=== PATIENT | female | born 1965 | race African-American/Black ===

== ENCOUNTER 2017-10-24 14:16 | Emergency (ER) | payer MEDICARE, MEDICAID | END 2017-10-24 16:32 | disposition left against medical advice (07) | LOC: ERS 14:16 | DX: Z53.21 Procedure and treatment not carried out due to patient leaving prior to being seen by health care provider (principal) ==

== ENCOUNTER 2018-02-26 17:20 | Emergency (ER) | payer MEDICARE, MEDICAID ==
[2018-02-26 18:02] LABS: Pregnancy Test - Urine (BHCG) Negative (Negative); Pregu Control Background? CLEAR/WHITE (CLR/WHITE); Pregu Control Bar Appear? YES (CONTROL BAR); Specific Gravity 1.021 (1.002-1.036)
[2018-02-26 19:01] LABS: Bilirubin Negative (Negative); Blood, Urine Negative (Negative); Clarity CLEAR (Clear); Glucose, Urine (Dipstick) Negative (Negative); Leukocyte Moderate (Negative); Nitrite Negative (Negative); Protein, Urine (Dipstick) Negative (Neg-Trace); Specific Gravity, Urine 1.023 (1.002-1.036); Urobilinogen 0.2 mg/dL (0.2-1.0); pH, Urine 5.5 (5.0-9.0)
[2018-02-26 19:04] LABS: Bacteria/HPF None Seen HPF (None Seen); Hyaline Casts/LPF 0-3 HYALINE CAST LPF (0-3 Hyaline); Pathc Cast-AUWi Flag 0.43 (0-2.49); Squamous Epithelial 0-3 HPF (0-3)
[2018-03-01 18:21] LABS: Chlamydia by PCR Not Detected (NotDetected); GC by PCR Not Detected (NotDetected)
== END 2018-02-26 19:22 | disposition home or self-care (01) ==
LOC: ERS 17:20
DX: B37.3 Candidiasis of vulva and vagina (principal); N39.0 Urinary tract infection, site not specified
CPT/HCPCS: 81003; 81015; 81025; 87077; 87086; 87480; 87491; 87510; 87591; 87660; 99283

== ENCOUNTER 2018-04-14 12:01 | Outpatient (CLI) | payer MEDICARE, MEDICAID ==
[2018-04-14 14:03] LABS: Hemoglobin 14.3 g/dL (12.0-16.0); Mean Corpuscular HGB CONC 33.8 g/dL (32.0-36.0); Mean Corpuscular Hemoglobin 30.9 pg (27.0-31.0); Mean Corpuscular Volume 91.7 fl (81.0-99.0); Mean Platelet Volume 7.5 fL (7.4-10.4); Platelet Count 233 thou/uL (130-400); RBC Distribution Width 11.9 % (11.5-14.5); Red Blood Cell (RBC) Count 4.62 mill/uL (4.20-5.40); White Blood Cell (WBC) Count 5.9 thou/uL (4.8-10.8)
[2018-04-14 14:08] LABS: PTT 31.3 SEC (22.9-36.1); Prothrombin Time 12.8 SEC (12.0-14.7)
[2018-04-14 14:11] LABS: Bilirubin Negative (Negative); Blood, Urine Negative (Negative); Clarity CLEAR (Clear); Glucose, Urine (Dipstick) Negative (Negative); Leukocyte Negative (Negative); Nitrite Negative (Negative); Protein, Urine (Dipstick) Negative (Neg-Trace); Specific Gravity, Urine 1.019 (1.002-1.036); Urobilinogen 0.2 mg/dL (0.2-1.0); pH, Urine 5.5 (5.0-9.0)
[2018-04-14 14:16] LABS: Bacteria/HPF None Seen HPF (None Seen); Hyaline Casts/LPF 0-3 HYALINE CAST LPF (0-3 Hyaline); Pathc Cast-AUWi Flag 0.29 (0-2.49); Squamous Epithelial None Seen HPF (0-3); WBC/HPF 0-3 HPF (0-3)
[2018-04-14 14:28] LABS: Anion Gap 10 mmol/L (10-20); BUN (Urea Nitrogen) 12 mg/dL (9.8-20.1); Calc. Creatinine Clearance 0 mL/min (70-130); Calcium 9.4 mg/dL (7.8-10.44); Carbon Dioxide 27 mmol/L (22-29); Chloride 105 mmol/L (98-107); Estimated GFR-MDRD Greater than 90; Glucose 95 mg/dL (70-105); Potassium 3.6 mmol/L (3.5-5.1); Sodium 138 mmol/L (136-145)
--- NOTE | 2018-04-15 20:24 | EKG ---
Test Reason : Blood Pressure : / mmHG Vent. Rate : 059 BPM Atrial Rate : 059 BPM P-R Int : 158 ms QRS Dur : 080 ms QT Int : 466 ms P-R-T Axes : 040 044 016 degrees QTc Int : 461 ms Sinus bradycardia Otherwise normal ECG No previous ECGs available Confirmed by LANCE TOLLIVER (2) on 04/15/2018 8:24:14 PM Referred By: CYNTHIA Confirmed By:LANCE TOLLIVER
== END 2018-04-14 12:02 | disposition home or self-care (01) ==
LOC: LABBT 12:01
PROVIDERS: ATTEND Orthopaedic Surgery
DX: Z01.818 Encounter for other preprocedural examination (principal); M17.11 Unilateral primary osteoarthritis, right knee
CPT/HCPCS: 80048; 81001; 85027; 85610; 85730; 86850; 86900; 86901; 87081; 93005; 93010

== ENCOUNTER 2018-04-21 05:39 | Inpatient (IN) | payer MEDICARE, MEDICAID ==
[2018-04-14 12:30] VITALS: BMI 35.5
[2018-04-21] MEDS ORDERED: CEFAZOLIN/Water 2 GM/20 ML SYRINGE ONE (05:56)
[2018-04-21] MEDS ORDERED: Fentanyl 100 MCG/2 ML VIAL ONE ×3 (06:09→09:26)
[2018-04-21] MEDS ORDERED: Midazolam HCl 2 mg/2 ml Vial ONE (06:09)
[2018-04-21] MEDS ORDERED: Sodium Chloride 0.9% 100 ML ONE (06:14)
[2018-04-21] MEDS ORDERED: Vancomycin HCl 1.5 GM in Sodium Chloride 0.9% 250 ML 300 ML IVPB SCH ×2 (06:15→18:00)
[2018-04-21] MEDS ORDERED: Lidocaine 1% (PF) 30 ML VIAL ONE (06:19)
[2018-04-21] MEDS ORDERED: Bupivacaine/Epinephrine 0.25% 30 ML VIAL ONE ×2 (06:33→06:37)
[2018-04-21] MEDS ORDERED: Ondansetron HCl/PF 4 MG/2 ML Vial IVP PRN ×3 (07:08→10:45)
[2018-04-21] MEDS ORDERED: HYDROcodone/Acetaminophen 10/325 mg Tablet PO PRN ×3 (07:08→10:45)
[2018-04-21] MEDS ORDERED: Promethazine HCl 25 MG/ML VIAL IM PRN ×2 (07:08→10:12)
[2018-04-21] MEDS ORDERED: Zolpidem Tartrate 5 MG TAB PO PRN ×2 (07:08→10:45)
[2018-04-21] MEDS ORDERED: traMADol HCl 50 MG TAB PO PRN ×3 (07:08→10:45)
[2018-04-21] MEDS ORDERED: PROPOFOL 200 MG/20 ML VIAL ONE (07:17)
[2018-04-21] MEDS ORDERED: Ketorolac Tromethamine 30 MG/ML VIAL ONE (07:17)
[2018-04-21] MEDS ORDERED: Dexamethasone 20 MG/5 ML VIAL ONE (07:17)
[2018-04-21] MEDS ORDERED: Ondansetron HCl/PF 4 MG/2 ML Vial ONE (07:17)
[2018-04-21] MEDS ORDERED: Lidocaine 1% PF 5 ML VIAL ONE (07:17)
[2018-04-21] MEDS ORDERED: ePHEDrine/0.9% NaCl/PF SYRINGE 50 mg/10 ml ONE ×2 (07:17)
--- NOTE | 2018-04-21 08:10 | HP ---
CHIEF COMPLAINT: Right knee pain. HISTORY OF PRESENT ILLNESS: Ms. Jackson is a pleasant 52-year-old female with right greater than left knee pain for greater than 3 years. She has started pain, pain with activities instability with mot ion. Pain rated as high as 10/10. The patient had previous injections which relieved the pain, but currently this has failed. Patient desired to have operative intervention given the continued pain i n her right knee. PAST MEDICAL HISTORY: Seasonal allergies and bladder dysfunction. PAST SURGICAL HISTORY: Low back procedure not otherwise specified, C-sections x2, and closure of the left thigh laceration. MEDICATIONS: Vitamin D, fish oil, and VESIcare. ALLERGIES: VASQUEZ, MUSTARD, AND LATEX. SOCIAL HISTORY: The patient is a nonsmoker, denies alcohol use. The patient lives in [place]. PHYSICAL EXAMINATION: VITAL SIGNS: Afebrile. Vital signs are stable. GENERAL: Alert and oriented female in no acute distress. HEENT: Normocephalic, atraumatic. Extraocular muscles are intact LUNGS: Unlabored , symmetric chest rise. ABDOMEN: Soft, obese, nontender. EXTREMITIES: The patient's right knee, the patient is neurovascularly intact, 0-120. The patient bang s unilateral joint line pain crepitus. The patient has no lesions or abrasions. IMAGING: The patient got an x-ray, which showing right patellar osteophytes, varus angulation. IMPRESSION: Right knee osteoarthritis. ASSESSMENT AND PLAN: The patient will undergo total knee arthroplasty. Follow [facility] protocol. I discussed with patient risks and benefits of the surgery, pain, scar, bleeding, infection, damage to vital structures, nonunion, malunion, fracture reoccurs, risk for further surgeries, need for revi jesus in the future . I discussed the duration of implants. The patient understands and desires to proceed with surgery and planned for surgery today.
[2018-04-21] MEDS ORDERED: Tranexamic Acid 1,000 MG in Sodium Chloride 0.9% 100 ML IVPB SCH (09:30)
[2018-04-21] MEDS ORDERED: Meperidine HCl/PF 25 MG/ML VIAL SLOW IVP PRN (10:12)
[2018-04-21] MEDS ORDERED: Promethazine HCl 25 MG/ML VIAL SLOW IVP PRN (10:12)
[2018-04-21] MEDS ORDERED: Acetaminophen 325 MG TAB PO PRN (10:45)
[2018-04-21] MEDS ORDERED: diphenhydrAMINE 25 MG CAP PO PRN (10:45)
[2018-04-21] MEDS ORDERED: Fentanyl 100 MCG/2 ML VIAL SLOW IVP PRN ×2 (10:45)
[2018-04-21] MEDS ORDERED: Ketorolac Tromethamine 30 MG/ML VIAL IM PRN (10:45)
[2018-04-21] MEDS: Fentanyl 100 MCG/2 ML VIAL IV PRN (10:56)
--- NOTE | 2018-04-21 11:09 | RAD ---
2 VIEW RIGHT KNEE: Date: 04/21/18 CLINICAL HISTORY: Total knee replacement, right side, postop evaluation. FINDINGS: Right knee arthroplasty is seen without hardware complication. Expected postprocedural findings of th e regional soft tissues present. IMPRESSION: Postoperative right knee, without acute hardware complication. POS: [facility]
--- NOTE | 2018-04-21 11:29 | OP ---
DATE OF PROCEDURE: 04/21/2018 PREOPERATIVE DIAGNOSIS: Right knee osteoarthritis. POSTOPERATIVE DIAGNOSIS: Right knee osteoarthritis. PROCEDURE PERFORMED: Right total knee arthroplasty. STAFF: Vicente Duke M.D. BORING MACHINE OPERATOR HELPER: Miguel Angel Miguel PA-C. ANESTHESIA: Lisandro Paris. The patient received LMA with an adductor canal and single shot sciatic . ESTIMATED BLOOD LOSS: 75 mL. TOURNIQUET TIME: 83 minutes at 300 mmHg. ANTIBIOTICS: Ancef 2 grams, vancomycin 1.5 grams. IMPLANTS: The patient had a Deepak size 3 CS femur, size 3 tibial tray, CS 9 mm Triathlon CR femur and a size A29 asymmetric patella Triathlon X3. COMPLICATIONS: None. HISTORY OF PRESENT ILLNESS: Ms. Jackson is a 52-year-old female presenting with right knee pain for o naomie 3 years. The pain was severe, limited her ability to function, had night pain, had start up pain . The pain was constant. I discussed with the patient the risks and benefits of right total knee ar throplasty to include pain, scar, bleeding, infection, damage to vital structures, decreased range of motion, strength, failure of the procedure, continued pain despite surgical intervention, loss of li fe or limb. The patient understood the risks and benefits of procedure and elected to proceed. PROCEDURE NOTE: Timeout was performed designating the patient's right lower extremity as the operati ve site based on sight, consents markings. After completion of timeout an anterior incision was made medial patellar approach and everted the patella. We released the medial soft tissues, excised the fat pad. We then took down her ACL mapped our distal femur. There was arthritic changes in the aldana lla, the entire medial femoral condyle and medial tibial plateau. After we everted the patella we ma pped out the distal femur, cut 0 degrees varus valgus 8-7 with 4 degrees anterior slope. After compl etion of this, we then removed the clamp in the anterior cut. We then placed our 4 degree external s ize 4 guide after we had pinned our block for 3 degrees of external rotation, mapped out to a 4, it f it well medial and lateral as well as anterior and posterior. We cut our anterior, posterior chamfer cuts, removed the osteophytes, placed our pickle fork, exposed the tibia and mapped out our tibia an d cut 0 degrees varus valgus, 4 degrees posterior slope and 1 at 6 mm, removed the osteophyte. We th en removed all the bones. We then placed our laminar wax ball knock out worker, cleaned out our medial and lateral gu tters. There were no posterior osteophytes to speak. Removed all our medial and lateral menisci. W kelly took down the medial osteophyte. We pinned our size 3 tibial tray, a 9 mm poly and size 4 femur. The patient had good flexion, extension, has good stability. We then moved to our patella, everted p atella, sized up to about a 26 and a prominent distal patella, cut down to about 12 mm. We still had some tracking issues with the lateral release ____ right knee. Therefore, we downsized from a 4 to a 3 and felt we had better tracking and overall alignment of the patient's knee. She also had a shree le bit less tightness in flexion. We then moved our compartments. We cut our keel for our tibia, dr abdid our holes for femur, removed all implants, washed the knee, cemented our tibia, placed our poly , removed excess cement, cemented our femur, removed excess cement and cemented our patella and remov ed excess cement. Flexed knee to ensure the notch was in place, cleaned it out. We then lined up ou r arthrotomy closed with #2 2 Quill, 0 Quill, 2-0 Quill and glue. The patient will be following [facility] protocol, was admitted to hospital for postop course.
[2018-04-21] MEDS ORDERED: Aspirin 81 mg Enteric Coated Tablet PO SCH (11:30)
[2018-04-21] MEDS ORDERED: Ketorolac Tromethamine 30 MG/ML VIAL IVP SCH (12:00)
[2018-04-21] MEDS: HYDROcodone/Acetaminophen 10/325 mg Tablet PO PRN ×2 (12:53→18:05)
[2018-04-21] MEDS: Ketorolac Tromethamine 30 MG/ML VIAL IVP SCH ×2 (15:01→20:16)
[2018-04-21] MEDS ORDERED: Ropivacaine 0.2% HCl/PF (40 MG/20 ML VIAL) ONE (15:26)
[2018-04-21] MEDS ORDERED: Ropivacaine 0.5% HCl/PF (150 MG/30 ML VIAL) ONE (15:26)
[2018-04-21] MEDS: CEFAZOLIN/Water 2 GM/20 ML SYRINGE SLOW IVP SCH ×2 (15:33→22:11)
[2018-04-21] MEDS: Dextrose 5 %-0.45 % NaCl 1,000 ML IV SCH ×2 (15:33→20:17)
[2018-04-21] MEDS: Promethazine HCl 25 MG/ML VIAL IM PRN (15:41)
[2018-04-21] MEDS: TROSPIUM 20 MG TABLET PO SCH (20:14)
[2018-04-21] MEDS: Aspirin 81 mg Enteric Coated Tablet PO SCH (20:15)
[2018-04-21] MEDS: Bupivacaine 0.5% 50 ML in Sodium Chloride 0.9% 50 ML NERVE BLCK SCH (21:58)
[2018-04-22] MEDS: Ketorolac Tromethamine 30 MG/ML VIAL IVP SCH ×4 (00:27→20:01)
[2018-04-22] MEDS: Dextrose 5 %-0.45 % NaCl 1,000 ML IV SCH ×3 (04:04→21:33)
[2018-04-22 06:05] LABS: Hemoglobin 11.6 g/dL (12.0-16.0); Mean Corpuscular HGB CONC 35.8 g/dL (32.0-36.0); Mean Corpuscular Hemoglobin 33.1 pg (27.0-31.0); Mean Corpuscular Volume 92.5 fl (81.0-99.0); Platelet Count 187 thou/uL (130-400); RBC Distribution Width 11.8 % (11.5-14.5); Red Blood Cell (RBC) Count 3.52 mill/uL (4.20-5.40); White Blood Cell (WBC) Count 9.7 thou/uL (4.8-10.8)
[2018-04-22] MEDS: HYDROcodone/Acetaminophen 10/325 mg Tablet PO PRN ×4 (06:58→20:00)
[2018-04-22] MEDS: Fish Oil 1,000 MG CAP PO SCH (08:47)
[2018-04-22] MEDS: Senokot S 8.6-50 MG TAB PO SCH ×2 (08:47→20:01)
[2018-04-22] MEDS: Ferrous Gluconate 324 MG TAB PO SCH ×2 (08:47→16:10)
[2018-04-22] MEDS: Aspirin 81 mg Enteric Coated Tablet PO SCH ×2 (08:48→20:01)
[2018-04-22] MEDS: Multivitamin W/ Minerals 1 TAB PO SCH (08:48)
[2018-04-22] MEDS: TROSPIUM 20 MG TABLET PO SCH ×2 (10:42→20:00)
--- NOTE | 2018-04-22 10:42 | PDOC.PN ---
- Subjective Encounter Start Date: 04/22/18 Encounter Start Time: 09:00 Pt doing well, some discomfort, epidural still in jose miguel decreased, out walking with PT. No F/C, no N/V/d/C, no CP or SOB all systems reviewed and neg x as above - Objective MAR Reviewed: Yes Vital Signs & Weight: Vital Signs (12 hours) Temp Pulse Resp BP BP Pulse Ox 04/22/18 07:48 98.3 F 58 L 16 105/61 94 L 04/22/18 04:19 97.8 F 58 L 16 94/51 L 96 04/22/18 00:49 97.9 F 61 12 92/59 L 93 L Weight Weight 220 lb I&O: 04/21/18 04/22/18 04/23/18 06:59 06:59 06:59 Intake Total 3965 Output Total 2024 Balance 1939 Result Diagrams: 04/22/18 04:51 Phys Exam - Physical Examination Constitutional: NAD HEENT: PERRLA, moist MMs, sclera anicteric, oral pharynx no lesions Neck: no nodes, no JVD, supple, full ROM Respiratory: no wheezing, no rales, no rhonchi, clear to auscultation bilateral Cardiovascular: RRR, no significant murmur, no rub Gastrointestinal: soft, non-tender, no distention, positive bowel sounds Musculoskeletal: pulses present, edema present Neurological: non-focal, normal sensation, moves all 4 limbs Lymphatic: no nodes Psychiatric: normal affect, A&O x 3 Skin: no rash, normal turgor, cap refill <2 seconds Dx/Plan (1) Bladder dysfunction Code(s): N31.9 - NEUROMUSCULAR DYSFUNCTION OF BLADDER, UNSPECIFIED Status: Chronic Comment: continue Vesicare (2) Seasonal allergies Code(s): J30.2 - OTHER SEASONAL ALLERGIC RHINITIS Status: Chronic (3) DJD (degenerative joint disease) Code(s): M19.90 - UNSPECIFIED OSTEOARTHRITIS, UNSPECIFIED SITE Status: Chronic Qualifiers: Osteoarthritis location: multiple joints Osteoarthritis type: primary Qualified Code(s): M15.0 - Primary generalized (osteo)arthritis (4) Postoperative pain of right knee Code(s): M25.561 - PAIN IN RIGHT KNEE; G89.18 - OTHER ACUTE POSTPROCEDURAL PAIN Status: Acute Comment: fairly wellcontrolled at present. Weaning off epidural (5) History of arthroplasty of right knee Code(s): Z96.651 - PRESENCE OF RIGHT ARTIFICIAL KNEE JOINT Status: Acute Comment: POD 1, Dr Duke. - Plan cont current plan of care, PT/OT, social services assistant, out of bed/ambulate * .
--- NOTE | 2018-04-22 10:47 | CON ---
DATE OF CONSULTATION: 04/21/2018 TIME OF SERVICE: 1430 PRIMARY CARE PHYSICIAN: Ava Lott NP CONSULTING PHYSICIAN: Dr. Vicente Duke REASON FOR CONSULTATION: Medical management post right knee arthroplasty. HISTORY OF PRESENT ILLNESS: Ms. Jackson is a 52-year-old female with a history of allergies and bladd er dysfunction who is postop day 0 from a right total knee arthroplasty earlier this morning. Postop eratively, we have been consulted for medical management. Currently, she has a little discomfort, has already been up out of bed and feels pretty good. Denies any fevers, chills, night sweats, nausea, vomiting, chest pain or difficulty breathing. She does have a history of bladder dysfunction she takes some VESIcare for, but otherwise she really does not have any chronic medical issues. She anticipates going home with home health care on discharge and wants to go home tomorrow if able. No other current complaints. PAST MEDICAL HISTORY: 1. Allergies. 2. Bladder dysfunction. PAST SURGICAL HISTORY: 1. Left oophorectomy. 2. Low back surgery. 3. Right leg repair after fracture. 4. Left-sided lumpectomy. 5. Hemorrhoidectomy. 6. x2. HOME MEDICATIONS: 1. Vitamin D3 1000 units daily. 2. VESIcare 10 mg p.o. q.a.m. 3. Fish oil daily. ALLERGIES: POWDERED GLOVES, VASQUEZ and MUSTARD. FAMILY HISTORY: Negative for clotting or bleeding disorder. No immune dysfunction, no premature cor onary disease. SOCIAL HISTORY: Negative for habits x3. Lives near [place]. REVIEW OF SYSTEMS: All systems reviewed and negative except as stated as per HPI. PHYSICAL EXAMINATION: VITAL SIGNS: Temperature 97.4, pulse 70, blood pressure 128/73, respiratory 16, 94% on room air. GENERAL: She is awake. She is alert, she is oriented x3, well-developed, well-nourished female who is in no distress. HEENT: She is normocephalic, atraumatic. Pupils are equal, round, reactive bilaterally. Mucous mem branes are moist. She has no visible lesions, no thrush. NECK: Supple. She had no lymphadenopathy, JVD or thyromegaly. She had normal carotid upstrokes. T here are no bruits. LUNGS: Clear. No wheezes, no rales or rhonchi. Good air movement. Symmetrical chest excursion. CARDIOVASCULAR: Shows a regular rhythm and normal rate. Normal S1, S2. No S3, S4. No audible murm urs. ABDOMEN: Soft, it is nontender, nondistended, no masses, no organomegaly. EXTREMITIES: No cyanosis, clubbing. Trace edema. Her right knee postop dressing is intact. There is no bleeding or strike through. SKIN: Warm, moist and well perfused. She has no rash or lesions. Epidural is intact. NEUROLOGIC: Cranial nerves II-XII are grossly intact. She has no focal deficits, normal speech and 5/5 strength. MUSCULOSKELETAL: Other than her right knee postop dressing is normal. No inflamed joints and no pal pable effusions. ASSESSMENT AND PLAN: 1. Bladder dysfunction. 2. Seasonal allergies. 3. Osteoarthritis. 4. Status post right total knee arthroscopy. Routine care, continue home medication, out of bed with physical therapy and discharge when ready.
[2018-04-22] MEDS: Bupivacaine 0.5% 50 ML in Sodium Chloride 0.9% 50 ML NERVE BLCK SCH ×2 (11:02→23:11)
[2018-04-22] MEDS: Fentanyl 100 MCG/2 ML VIAL IV PRN (13:31)
[2018-04-23] MEDS: Ketorolac Tromethamine 30 MG/ML VIAL IVP SCH ×2 (01:41→08:53)
[2018-04-23 05:44] LABS: Hemoglobin 11.6 g/dL (12.0-16.0); Mean Corpuscular HGB CONC 33.5 g/dL (32.0-36.0); Mean Corpuscular Hemoglobin 30.9 pg (27.0-31.0); Mean Corpuscular Volume 92.4 fl (81.0-99.0); Mean Platelet Volume 7.4 fL (7.4-10.4); Platelet Count 169 thou/uL (130-400); RBC Distribution Width 11.9 % (11.5-14.5); Red Blood Cell (RBC) Count 3.74 mill/uL (4.20-5.40); White Blood Cell (WBC) Count 7.3 thou/uL (4.8-10.8)
[2018-04-23] MEDS: HYDROcodone/Acetaminophen 10/325 mg Tablet PO PRN ×3 (07:10→16:05)
[2018-04-23] MEDS: TROSPIUM 20 MG TABLET PO SCH (08:54)
[2018-04-23] MEDS: Multivitamin W/ Minerals 1 TAB PO SCH (08:54)
[2018-04-23] MEDS: Fish Oil 1,000 MG CAP PO SCH (08:54)
[2018-04-23] MEDS: Ferrous Gluconate 324 MG TAB PO SCH ×2 (08:54→16:05)
[2018-04-23] MEDS: Aspirin 81 mg Enteric Coated Tablet PO SCH (08:54)
[2018-04-23] MEDS: Senokot S 8.6-50 MG TAB PO SCH (08:54)
--- NOTE | 2018-04-23 13:55 | PDOC.PN ---
- Subjective Encounter Start Date: 04/23/18 Encounter Start Time: 10:00 pt feeling much better, epidural ot, urinating well, no new complaints, pain well controlled No F/C, no n/V/D/C, no CP or SOB All systems reviewed and neg x as above - Objective MAR Reviewed: Yes Vital Signs & Weight: Vital Signs (12 hours) Temp Pulse Resp BP BP Pulse Ox 04/23/18 10:50 98.8 F 74 16 112/64 92 L 04/23/18 07:50 98.9 F 80 18 96 04/23/18 07:14 98.9 F 80 18 143/90 H 96 04/23/18 03:43 98.8 F 79 18 112/60 97 Weight Admit Weight 220 lb Weight 220 lb I&O: 04/22/18 04/23/18 04/24/18 06:59 06:59 06:59 Intake Total 3965 3495 Output Total 2024 158 Balance 1939 1909 Result Diagrams: 04/23/18 05:01 Phys Exam - Physical Examination Constitutional: NAD HEENT: PERRLA, moist MMs, sclera anicteric, oral pharynx no lesions Neck: no nodes, no JVD, supple, full ROM Respiratory: no wheezing, no rales, no rhonchi, clear to auscultation bilateral Cardiovascular: RRR, no significant murmur, no rub Gastrointestinal: soft, non-tender, no distention, positive bowel sounds Musculoskeletal: pulses present, edema present Neurological: non-focal, normal sensation, moves all 4 limbs Lymphatic: no nodes Psychiatric: normal affect, A&O x 3 Skin: no rash, normal turgor, cap refill <2 seconds Dx/Plan (1) Bladder dysfunction Code(s): N31.9 - NEUROMUSCULAR DYSFUNCTION OF BLADDER, UNSPECIFIED Status: Chronic Comment: continue Vesicare (2) Seasonal allergies Code(s): J30.2 - OTHER SEASONAL ALLERGIC RHINITIS Status: Chronic (3) DJD (degenerative joint disease) Code(s): M19.90 - UNSPECIFIED OSTEOARTHRITIS, UNSPECIFIED SITE Status: Chronic Qualifiers: Osteoarthritis location: multiple joints Osteoarthritis type: primary Qualified Code(s): M15.0 - Primary generalized (osteo)arthritis (4) Postoperative pain of right knee Code(s): M25.561 - PAIN IN RIGHT KNEE; G89.18 - OTHER ACUTE POSTPROCEDURAL PAIN Status: Acute Comment: fairly wellcontrolled at present. Weaning off epidural (5) History of arthroplasty of right knee Code(s): Z96.651 - PRESENCE OF RIGHT ARTIFICIAL KNEE JOINT Status: Acute Comment: POD 2, Dr Duke. Anticipate discharge today. Home, unsure if getting [facility] - Plan cont current plan of care, PT/OT, out of bed/ambulate * .
[2018-04-23] MEDS: Dextrose 5 %-0.45 % NaCl 1,000 ML IV SCH (14:19)
[2018-04-23] MEDS: Promethazine HCl 25 MG/ML VIAL IM PRN (16:11)
[2018-04-23 16:17] VITALS: BP 105/55; TEMP 98.5
== END 2018-04-23 16:25 | disposition home or self-care (01) | DRG 470 ==
LOC: SDC 05:39 → SJJU 10:39
PROVIDERS: ADMIT Orthopaedic Surgery; ATTEND Orthopaedic Surgery
PROC: 0SRC0J9 Replacement of Right Knee Joint with Synthetic Substitute, Cemented, Open Approach (ICD-10-PCS; principal; 2018-04-21)
DX: M17.11 Unilateral primary osteoarthritis, right knee (principal); J30.2 Other seasonal allergic rhinitis; Z79.899 Other long term (current) drug therapy; Z91.040 Latex allergy status; Z91.018 Allergy to other foods; N31.9 Neuromuscular dysfunction of bladder, unspecified
CPT/HCPCS: 36415; 85027; A4216; C1713; C1776; G8978-GP-CK; G8979-GP-CJ; J1100; J1885; J2001; J2250; J2405; J2550; J2704; J2795; J3010; J3370; J3490; J7050

== ENCOUNTER 2018-09-15 09:46 | Outpatient (CLI) | payer MEDICARE, MEDICAID | END 2018-09-15 09:47 | disposition home or self-care (01) | LOC: BICMAMMO 09:46 | PROVIDERS: ATTEND Orthopaedic Surgery | DX: Z12.31 Encounter for screening mammogram for malignant neoplasm of breast (principal); N63.21 Unspecified lump in the left breast, upper outer quadrant | CPT/HCPCS: 77063; 77067 ==

== ENCOUNTER 2018-09-21 09:30 | Emergency (ER) | payer MEDICARE, MEDICAID | END 2018-09-21 09:50 | disposition home or self-care (01) | LOC: ERS 09:30 | DX: H11.31 Conjunctival hemorrhage, right eye (principal) | CPT/HCPCS: 99283 ==

== ENCOUNTER 2019-01-04 07:34 | Outpatient (CLI) | payer MEDICARE, MEDICAID ==
--- NOTE | 2019-01-04 10:35 | MRI ---
MRI LUMBAR SPINE WITH AND WITHOUT CONTRAST: DATE: 01/04/2019. HISTORY: A 53-year-old female with M54.16, lumbar radiculopathy. Lumbar surgery in 1991. COMPARISON: None. TECHNIQUE: Multiple sequences obtained in axial and sagittal planes, pre and post IV injection of gadolinium-bas ed contrast agent: 20 mL of MultiHance. FINDINGS: There are 5 lumbar-type vertebrae. Vertebral body heights are maintained. There is a large hemangio ma of bone at L1 vertebral body. There are Modic type II changes at the end plates at L5-S1. There is no bone marrow edema. There is mild disk space narrowing at L3-4 and L4-5, and moderate to severe disk space narrowing at L5-S1. T12-L1: Conus medullaris terminates at this level. Normal. L1-2: Disk bulge indents the ventral aspect of the thecal sac without causing significant central sp inal canal stenosis. No high-grade neural foraminal stenosis. L2-3: No central stenosis. Mild bilateral neural foraminal stenosis, left greater than right. No h igh-grade facet DJD. L3-4: No central stenosis. Mild bilateral neural foraminal stenosis, left greater than right. Bila teral mild to moderate degenerative facet changes. L4-5: Bilateral moderate degenerative facet changes cause a minimal grade I anterolisthesis of L4 on L5. Mild bilateral neural foraminal stenosis, left greater than right. Lateral recess stenosis cat aterally. Otherwise, no high-grade central spinal canal stenosis. L5-S1: Right laminectomy defect. Enhancing postsurgical scar tissue at the ventral aspect of the th ecal sac abutting the bilateral S1 nerve roots, right more than left. Moderate right lateral recess stenosis, with contact by right facet complex. Mild right neural foraminal stenosis and no left neur al foraminal stenosis. Mild to moderate bilateral degenerative facet changes. IMPRESSION: 1. Status post right hemilaminectomy at L5-S1, where there is scar tissue in the anterior aspect of the epidural space contacting the bilateral S1 nerve roots. 2. No high-grade central spinal canal stenosis or high-grade neural foraminal stenosis at any level. 3. Lateral recess stenosis bilaterally at L4-5 and on the right at L5-S1. 4. Mild grade I spondylolisthesis at L4-5 due to bilateral moderate facet osteoarthrosis. JN R POS: CET
[2019-01-04] MEDS ORDERED: Gadobenate Dimeglumine 529 MG/1 ML (20ML VIAL) ONE (17:05)
== END 2019-01-04 07:35 | disposition home or self-care (01) ==
LOC: BICMRI 07:34
PROVIDERS: ATTEND Orthopaedic Surgery
DX: M47.26 Other spondylosis with radiculopathy, lumbar region (principal); M43.16 Spondylolisthesis, lumbar region; M48.061 Spinal stenosis, lumbar region without neurogenic claudication; M48.07 Spinal stenosis, lumbosacral region; Z98.890 Other specified postprocedural states
CPT/HCPCS: 72158; A9577

== ENCOUNTER 2019-08-30 20:13 | Emergency (ER) | payer MEDICARE, MEDICAID | END 2019-08-30 22:26 | disposition left against medical advice (07) | LOC: ERS 20:13 | DX: Z53.21 Procedure and treatment not carried out due to patient leaving prior to being seen by health care provider (principal) ==

== ENCOUNTER 2019-11-11 15:47 | Emergency (ER) | payer MEDICARE, MEDICAID ==
[2019-11-11 16:09] LABS: Bacteria/HPF None Seen HPF (None Seen); Bilirubin Negative (Negative); Blood, Urine 1+ (Negative); Clarity Clear (Clear); Glucose, Urine (Dipstick) Normal (Negative); Leukocyte Negative Leu/uL (Negative); Mucous/LPF Rare LPF (<2+); Nitrite Negative (Negative); Protein, Urine (Dipstick) Negative (Neg-Trace); RBC/HPF 0-3 HPF (0-3); Squamous Epithelial 0-3 HPF (0-3); Urobilinogen Normal mg/dL (Less than 2); WBC/HPF 0-3 HPF (0-3)
[2019-11-11] MEDS ORDERED: Ketorolac Tromethamine 30 MG/ML VIAL ONE (17:04)
== END 2019-11-11 17:15 | disposition home or self-care (01) ==
LOC: ERS 15:47
DX: N30.10 Interstitial cystitis (chronic) without hematuria (principal); K21.9 Gastro-esophageal reflux disease without esophagitis; Z79.899 Other long term (current) drug therapy
CPT/HCPCS: 81003; 81015; 96372; 99283; J1885

== ENCOUNTER 2019-12-08 16:39 | Emergency (ER) | payer MEDICARE, MEDICAID ==
[2019-12-08] MEDS ORDERED: Adacel (T-DAP) 0.5 ML SYRINGE ONE (17:38)
[2019-12-08] MEDS ORDERED: Morphine 4 MG/ML VIAL ONE (17:43)
--- NOTE | 2019-12-08 18:21 | RAD ---
FOUR VIEWS RIGHT KNEE: 12/08/19 HISTORY: Abrasion to right knee. Right knee pain after a fall. COMPARISON: 04/21/18 FINDINGS: Again noted is a right total knee prosthesis. No hardware complication seen. There is no fracture or dislocation. Subcutaneous edema and emphysema noted on the prior exam has resolved. No other interval change. IMPRESSION: 1. No acute osseous abnormality of the right knee. 2. Stable postoperative changes related to right total knee replacement. POS: NAKITA
[2019-12-08] MEDS ORDERED: Bacitracin 1 PK ONE (18:46)
== END 2019-12-08 19:16 | disposition home or self-care (01) ==
LOC: ERS 16:39
DX: S80.211A Abrasion, right knee, initial encounter (principal); K21.9 Gastro-esophageal reflux disease without esophagitis; Z79.899 Other long term (current) drug therapy; W18.09XA Striking against other object with subsequent fall, initial encounter
CPT/HCPCS: 90471; 90715; 96374; J2270

== ENCOUNTER 2020-11-28 12:48 | Outpatient (CLI) | payer MEDICARE, MEDICAID ==
--- NOTE | 2020-11-28 14:59 | CT ---
CT ABDOMEN AND PELVIS WITHOUT IV CONTRAST: INDICATION: Hematuria. Right side pain. COMPARISON: Comparison is made to CT abdomen and pelvis 09/01/2017. FINDINGS: Lung bases clear. Liver, spleen, and pancreas unremarkable. Adrenal glands normal. Kidneys unremarkable. No hydronephrosis. The urinary bladder is minimally distended and unremarkabl e. Small and large bowel loops are unremarkable. Appendix is normal. Aorta normal caliber. No adenopa thy or free fluid identified. Faint calcification in the left renal cortex is unchanged from the prior exam of 2017. IMPRESSION: No acute process. No evidence of ureteral calculus. POS: AGW
== END 2020-11-28 12:49 | disposition home or self-care (01) ==
LOC: BICCT 12:48
PROVIDERS: ATTEND Obstetrics & Gynecology
DX: R31.9 Hematuria, unspecified (principal)
CPT/HCPCS: 74176

== ENCOUNTER 2020-12-29 10:03 | Outpatient (CLI) | payer MEDICARE, MEDICAID | END 2020-12-29 10:04 | disposition home or self-care (01) | LOC: BICRAD 10:03 | PROVIDERS: ATTEND Family Medicine | DX: M79.645 Pain in left finger(s) (principal) ==

== ENCOUNTER 2021-02-21 08:09 | Outpatient (CLI) | payer MEDICARE, MEDICAID ==
[2021-02-21] MEDS ORDERED: Iopamidol 370 76% 100 ML VIAL ONE (13:54)
== END 2021-02-21 08:10 | disposition home or self-care (01) ==
LOC: BICCT 08:09
PROVIDERS: ATTEND Urology
DX: N39.0 Urinary tract infection, site not specified (principal); R31.29 Other microscopic hematuria; R10.31 Right lower quadrant pain; Z87.442 Personal history of urinary calculi; E65 Localized adiposity; N39.46 Mixed incontinence
CPT/HCPCS: 74178; 81001; 87086; Q9967

== ENCOUNTER 2021-05-24 14:28 | Outpatient (CLI) | payer MEDICARE, MEDICAID ==
[2020-02-10 14:37] LABS: #Basophils 0.1 thou/uL (0.0-0.2); #Eosinphils 0.2 thou/uL (0.0-0.7); #Lymphocytes 3.9 thou/uL (1.20-3.40); #Monocytes 0.7 thou/uL (0.11-0.59); #Neutrophils 3.7 thou/uL (1.40-6.50); %Basophils 0.9 % (0.0-1.0); %Eosinophils 2.7 % (0.0-10.0); %Lymphocytes 45.2 % (21.0-51.0); %Monocytes 7.9 % (0.0-10.0); %Neutrophils 43.3 % (42.0-75.0); Mean Corpuscular HGB CONC 33.3 g/dL (32.0-36.0); Mean Corpuscular Hemoglobin 30.3 pg (27.0-31.0); Platelet Count 266 thou/uL (130-400); RBC Distribution Width 12.2 % (11.5-14.5); Red Blood Cell (RBC) Count 4.95 mill/uL (4.20-5.40); White Blood Cell (WBC) Count 8.5 thou/uL (4.8-10.8)
[2020-02-10 14:39] LABS: Bacteria/HPF None Seen HPF (None Seen); Bilirubin Negative (Negative); Blood, Urine 1+ (Negative); Clarity Clear (Clear); Glucose, Urine (Dipstick) Normal (Negative); Ketone, Urine Negative (Negative); Leukocyte Negative Leu/uL (Negative); Nitrite Negative (Negative); Protein, Urine (Dipstick) Negative (Neg-Trace); RBC/HPF 0-3 HPF (0-3); Specific Gravity, Urine 1.025 (1.002-1.036); Squamous Epithelial None Seen HPF (0-3); Urobilinogen Normal mg/dL (Less than 2); WBC/HPF 0-3 HPF (0-3)
[2020-02-10 14:43] LABS: Prothrombin Time 13.1 SEC (12.0-14.7)
[2020-02-10 15:00] LABS: Anion Gap 13 mmol/L (10-20); BUN (Urea Nitrogen) 12 mg/dL (9.8-20.1); Calc. Creatinine Clearance 0 mL/min (70-130); Calcium 9.7 mg/dL (7.8-10.44); Carbon Dioxide 24 mmol/L (22-29); Chloride 108 mmol/L (98-107); Glucose 88 mg/dL (70-105); Potassium 4.1 mmol/L (3.5-5.1); Sodium 141 mmol/L (136-145)
[2021-05-24 15:20] LABS: Bilirubin Neg (Negative); Blood, Urine 25 (Negative); Glucose, Urine (Dipstick) Normal (Negative); Ketone, Urine Negative (Negative); Leukocyte 25 (Negative); Nitrite Negative (Negative); Protein, Urine (Dipstick) 15 mg/dl (Neg-Trace); Specific Gravity, Urine 1.025 (1.002-1.036); Urobilinogen Normal mg/dL (Less than 2)
[2021-05-24 15:22] LABS: Clarity Clear (Clear)
[2021-05-24 15:26] LABS: #Basophils 0.1 10x3/uL (0.0-0.2); #Eosinphils 0.2 10x3/uL (0.0-0.5); #Monocytes 0.6 10x3/uL (0.0-1.1); %Basophils 0.7 % (0.0-2.0); %Eosinophils 3.4 % (0.0-6.0); %Lymphocytes 42.9 % (18.0-47.0); %Monocytes 8.7 % (0.0-10.0); Hemoglobin 14.5 g/dL (12.0-15.5); Mean Corpuscular HGB CONC 32.7 g/dL (32.0-36.0); Mean Corpuscular Hemoglobin 29.5 pg (27.0-33.0); Platelet Count 247 10x3/uL (150-450); RBC Distribution Width 12.5 % (11.5-14.5); Red Blood Cell (RBC) Count 4.92 10x6/uL (3.90-5.03); White Blood Cell (WBC) Count 6.8 10x3/uL (3.5-10.5)
[2021-05-24 15:34] LABS: RBC/HPF 0-3 HPF (0-3)
[2021-05-24 15:35] LABS: Bacteria/HPF Rare-Few HPF (None Seen)
[2021-05-25 11:09] LABS: SARS-CoV-2 PCR by NAA Not Detected (NotDetected)
== END 2021-05-24 14:29 | disposition home or self-care (01) ==
LOC: LABBT 14:28
PROVIDERS: ATTEND Orthopaedic Surgery Hand Surgery
DX: Z01.812 Encounter for preprocedural laboratory examination (principal); M65.312 Trigger thumb, left thumb; Z20.822 Contact with and (suspected) exposure to COVID-19
CPT/HCPCS: 80048; 81001 ×2; 85025 ×2; 85610; 87081; U0003; U0005

== ENCOUNTER 2021-10-02 10:50 | Outpatient (CLI) | payer MEDICARE, MEDICAID | END 2021-10-02 10:51 | disposition home or self-care (01) | LOC: BICMAMMO 10:50 | PROVIDERS: ATTEND Family Medicine | DX: Z12.31 Encounter for screening mammogram for malignant neoplasm of breast (principal); Z91.89 Other specified personal risk factors, not elsewhere classified | CPT/HCPCS: 77063; 77067 ==

== ENCOUNTER 2022-01-17 15:11 | Emergency (ER) | payer MEDICARE, MEDICAID ==
[2022-01-17 22:56] LABS: SARS-CoV-2 PCR by NAA DETECTED (NotDetected)
== END 2022-01-17 16:51 | disposition home or self-care (01) ==
LOC: ERS 15:11
DX: U07.1 COVID-19 (principal); J06.9 Acute upper respiratory infection, unspecified; K21.9 Gastro-esophageal reflux disease without esophagitis; K46.9 Unspecified abdominal hernia without obstruction or gangrene
CPT/HCPCS: 71045; 93005; U0003; U0005

== ENCOUNTER 2022-10-02 09:40 | Outpatient (CLI) | payer OTHER, MEDICAID | END 2022-10-02 09:41 | disposition home or self-care (01) | LOC: BICMAMMO 09:40 | PROVIDERS: ATTEND Family Medicine | DX: Z12.31 Encounter for screening mammogram for malignant neoplasm of breast (principal); Z13.820 Encounter for screening for osteoporosis; Z78.0 Asymptomatic menopausal state; Z91.89 Other specified personal risk factors, not elsewhere classified | CPT/HCPCS: 77063; 77067; 77080 ==

== ENCOUNTER 2023-09-04 09:59 | Outpatient (CLI) | payer OTHER, MEDICAID ==
[2023-09-04 11:38] LABS: Prothrombin Time 10.5 sec (9.5-12.1)
[2023-09-04 11:40] LABS: #Eosinphils 0.2 10x3/uL (0.0-0.5); #Monocytes 0.5 10x3/uL (0.0-1.1); #Neutrophils 2.5 10x3/uL (1.5-8.4); %Basophils 0.7 % (0.0-2.0); %Eosinophils 3.6 % (0.0-6.0); %Lymphocytes 41.7 % (18.0-47.0); %Monocytes 8.9 % (0.0-10.0); %Neutrophils 44.7 % (40.0-75.0); Hemoglobin 13.9 g/dL (12.0-15.5); Mean Corpuscular HGB CONC 32.3 g/dL (32.0-36.0); Mean Corpuscular Volume 89.8 fl (81.6-98.3); Mean Platelet Volume 9.7 fl (7.4-10.4); Platelet Count 252 10x3/uL (150-450); RBC Distribution Width 12.6 % (11.5-14.5); Red Blood Cell (RBC) Count 4.79 10x6/uL (3.90-5.03); White Blood Cell (WBC) Count 5.6 10x3/uL (3.5-10.5)
[2023-09-04 11:45] LABS: Anion Gap 14 mmol/L (10-20); BUN (Urea Nitrogen) 15 mg/dL (9.8-20.1); Calc. Creatinine Clearance 0 mL/min (70-130); Calcium 9.2 mg/dL (7.8-10.44); Carbon Dioxide 25 mmol/L (22-29); Chloride 104 mmol/L (98-107); Estimated GFR 101; Glucose 104 mg/dL (70-105); Potassium 4.1 mmol/L (3.5-5.1); Sodium 139 mmol/L (136-145)
== END 2023-09-04 10:00 | disposition home or self-care (01) ==
LOC: LABBT 09:59
PROVIDERS: ATTEND Orthopaedic Surgery
DX: Z01.818 Encounter for other preprocedural examination (principal); M17.2 Bilateral post-traumatic osteoarthritis of knee
CPT/HCPCS: 80048; 85025; 85610; 87081; 93005; 93010

== ENCOUNTER 2023-09-09 05:27 | Observation (INO) | payer OTHER, MEDICAID ==
[2023-09-04 10:38] VITALS: BMI 41.1
[2023-09-09] MEDS ORDERED: Tranexamic Acid 1,000 MG/10 ML VIAL ONE (05:57)
[2023-09-09] MEDS ORDERED: Vancomycin (BATCH) 1.5 GRAM/300 ML BAG ONE (05:57)
[2023-09-09] MEDS ORDERED: Sodium Chloride 0.9% 100 ML ONE (05:57)
[2023-09-09] MEDS ORDERED: EPINEPHrine 1 MG/ML AMP ONE (06:19)
[2023-09-09] MEDS ORDERED: Bupivacaine 0.25% HCL 30 ML VIAL ONE (06:19)
[2023-09-09] MEDS ORDERED: Lidocaine 1% (PF) 30 ML VIAL ONE (06:30)
[2023-09-09] MEDS ORDERED: Midazolam HCl 2 mg/2 ml Vial ONE (06:30)
[2023-09-09] MEDS ORDERED: fentaNYL PF 100 MCG/2 ML SYRINGE ONE ×2 (06:30→06:55)
[2023-09-09] MEDS ORDERED: Ketorolac Tromethamine 30 MG/ML VIAL ONE (06:40)
[2023-09-09] MEDS ORDERED: PHENYLEPHRINE-NS 100 MCG/ML 10 ML SYRINGE ONE (06:40)
[2023-09-09] MEDS ORDERED: Lidocaine 1% PF 5 ML VIAL ONE (06:40)
[2023-09-09] MEDS ORDERED: PROPOFOL 200 MG/20 ML VIAL ONE (06:40)
[2023-09-09] MEDS ORDERED: Ondansetron PF 4 MG/2 ML Vial ONE (06:40)
[2023-09-09] MEDS ORDERED: Dexamethasone 20 MG/5 ML VIAL ONE (06:40)
[2023-09-09] MEDS ORDERED: ePHEDrine Sulfate 50 MG/10 ML VIAL ONE (06:40)
[2023-09-09] MEDS ORDERED: fentaNYL 50 mcg/mL 1 mL Vial SLOW IVP PRN (07:03)
[2023-09-09] MEDS ORDERED: HYDROcodone/Acetaminophen 10/325 mg Tablet PO PRN (07:15)
[2023-09-09] MEDS ORDERED: Ropivacaine 0.2% 550 ML 550 ML NERVE BLCK SCH (07:15)
[2023-09-09] MEDS ORDERED: Zolpidem Tartrate 5 MG TAB PO PRN ×2 (07:15→09:17)
[2023-09-09] MEDS ORDERED: traMADol HCl 50 MG TAB PO PRN ×2 (07:15)
[2023-09-09] MEDS ORDERED: Ondansetron PF 4 MG/2 ML Vial IVP PRN (07:15)
[2023-09-09] MEDS ORDERED: Promethazine HCl 25 MG/ML VIAL IM PRN ×3 (07:15→09:17)
[2023-09-09] MEDS ORDERED: Bupivacaine PF 0.5% 30 ML VIAL ONE (07:27)
[2023-09-09] MEDS ORDERED: Ondansetron HCl/PF 4 MG/2 ML Vial IVP PRN (07:47)
[2023-09-09] MEDS ORDERED: PACU-Morphine 4MG/ML VIAL SLOW IVP PRN (07:47)
[2023-09-09] MEDS ORDERED: HYDROmorphone 2 MG/ML VIAL SLOW IVP PRN (07:47)
[2023-09-09] MEDS ORDERED: Acetaminophen 325 MG TAB PO PRN (09:17)
[2023-09-09] MEDS ORDERED: diphenhydrAMINE 25 MG CAP PO PRN (09:17)
[2023-09-09] MEDS ORDERED: fentaNYL 50 mcg/mL 1 mL Vial ONE ×3 (09:23→09:47)
[2023-09-09] MEDS ORDERED: Aspirin 81 mg Enteric Coated Tablet PO SCH (10:15)
[2023-09-09] MEDS: Ondansetron PF 4 MG/2 ML Vial IVP PRN ×2 (11:13→20:10)
[2023-09-09] MEDS: Sodium Chloride 0.9% 1,000 ML IV SCH ×2 (11:13→18:18)
[2023-09-09] MEDS: Ketorolac Tromethamine 30 MG/ML VIAL IVP SCH ×3 (11:13→23:21)
[2023-09-09] MEDS: HYDROcodone/Acetaminophen 10/325 mg Tablet PO PRN ×2 (11:20→17:00)
[2023-09-09] MEDS ORDERED: AZELASTINE HCL 0.15% EA NARE PRN (11:25)
[2023-09-09] MEDS ORDERED: Cyclobenzaprine 10 MG TAB PO PRN (11:27)
[2023-09-09] MEDS: CEFAZOLIN 2 GM in Sodium Chloride 0.9% 100 ML IVPB SCH ×2 (14:10→23:21)
[2023-09-09] MEDS: Aspirin 81 mg Enteric Coated Tablet PO SCH (20:08)
[2023-09-09] MEDS: Trospium 20 MG TAB PO SCH (20:08)
[2023-09-10] MEDS: Ketorolac Tromethamine 30 MG/ML VIAL IVP SCH (04:43)
[2023-09-10] MEDS: Sodium Chloride 0.9% 1,000 ML IV SCH (05:38)
[2023-09-10 05:51] LABS: Hematocrit 34.1 % (36.0-47.0); Hemoglobin 10.9 g/dL (12.0-16.0); Mean Corpuscular Hemoglobin 29.1 pg (27.0-31.0); Mean Corpuscular Volume 91.2 fl (78.0-98.0); Platelet Count 238 10x3/uL (130-400); RBC Distribution Width 12.9 % (11.5-14.5); Red Blood Cell (RBC) Count 3.74 mill/uL (4.20-5.40); White Blood Cell (WBC) Count 8.8 10x3/uL (4.8-10.8)
[2023-09-10] MEDS ORDERED: Ferrous Gluconate 324 MG TAB PO SCH (08:00)
[2023-09-10 08:24] VITALS: BP 105/71; TEMP 98.8
[2023-09-10] MEDS: Aspirin 81 mg Enteric Coated Tablet PO SCH (08:30)
[2023-09-10] MEDS: Trospium 20 MG TAB PO SCH (08:30)
[2023-09-10] MEDS: HYDROcodone/Acetaminophen 10/325 mg Tablet PO PRN (08:31)
[2023-09-10] MEDS ORDERED: Cholecalciferol 1,000 UNITS (25 MCG) TAB PO SCH (09:00)
[2023-09-10] MEDS ORDERED: Multivitamin W/ Minerals 1 TAB PO SCH (09:00)
[2023-09-10] MEDS ORDERED: Senokot S 8.6-50 MG TAB PO SCH (09:00)
[2023-09-10] MEDS ORDERED: Terbinafine 250 MG TAB PO SCH (09:00)
== END 2023-09-10 11:25 | disposition home or self-care (01) ==
LOC: SDC 05:27 → SJJU 09:17
PROVIDERS: ADMIT Orthopaedic Surgery; ATTEND Orthopaedic Surgery
PROC: 0SRD0JZ Replacement of Left Knee Joint with Synthetic Substitute, Open Approach (ICD-10-PCS; principal; 2023-09-09)
DX: M17.12 Unilateral primary osteoarthritis, left knee (principal); K21.9 Gastro-esophageal reflux disease without esophagitis; Z91.040 Latex allergy status; Z91.018 Allergy to other foods; Z96.651 Presence of right artificial knee joint; Z90.710 Acquired absence of both cervix and uterus; Z79.899 Other long term (current) drug therapy
CPT/HCPCS: 27447; 73560; 85027; 97110; 97116 ×2; 97530; A4306; C1776; J3010; J3370; 36415; J0171; J1100; J1885; J2001; J2250; J2405; J2704; J2795; J3490; J7050; S0020

== ENCOUNTER 2024-06-02 16:00 | Outpatient (CLI) | payer OTHER, MEDICAID | END 2024-06-02 16:01 | disposition home or self-care (01) | LOC: SLEEPLAB 16:00 | PROVIDERS: ATTEND Surgery | DX: G47.33 Obstructive sleep apnea (adult) (pediatric) (principal) | CPT/HCPCS: 95810 ==